=== PATIENT | female | born 1930 | race Caucasian/White ===

== ENCOUNTER 2019-06-18 11:56 | Inpatient (IN) | payer MEDICARE ==
[2019-06-18] MEDS ORDERED: SODIUM CHLORIDE 0.9% 1,000 ML IV STA (13:22)
--- NOTE | 2019-06-18 13:28 | ED ---
General Adult HPI - General Chief complaint: Recheck/Abnormal Lab/Rx Stated complaint: Hypotension Time Seen by Provider: 06/18/19 13:00 Source: patient, EMS, RN notes reviewed Mode of arrival: EMS Limitations: no limitations - History of Present Illness Initial comments: Patient is a pleasantly demented 88-year-old female presenting to the emergency Department with reported low blood pressure. Patient had recent hospitalization for infection of her right elbow with diagnosis of osteomyelitis. Patient was placed on IV medication including vancomycin. Patient states discomfort is only mild in her elbow at this time. Patient is a very poor historian secondary to advanced dementia. Patient reportedly did have recent chest x-ray done showing infiltrate on the right. Patient does admit to feeling tired and fatigued. Patient has no further complaints. - Related Data Home Medications Medication Instructions Recorded Confirmed Bisacodyl [Dulcolax] 10 mg RECTAL HS PRN 06/18/19 06/18/19 Furosemide [Lasix] 20 mg PO DAILY@0800 06/18/19 06/18/19 Furosemide [Lasix] 40 mg PO ONCE PRN 06/18/19 06/18/19 Glucerna Shake 1 can PO BID-W/MEALS 06/18/19 06/18/19 HYDROcodone/APAP 5-325MG [[place] 1 tab PO Q6H PRN 06/18/19 06/18/19 5-325] Loperamide [Imodium] 2 mg PO Q4H PRN 06/18/19 06/18/19 Losartan Potassium 100 mg PO DAILY@0800 06/18/19 06/18/19 Magnesium Hydroxide [Milk of 2,400 mg PO DAILY PRN 06/18/19 06/18/19 Magnesia] Metoprolol Succinate (ER) [Toprol 100 mg PO BID@0800,1700 06/18/19 06/18/19 Xl] Na Phos,M-B/Na Phos,Di-Ba [Fleet 133 ml RECTAL DAILY PRN 06/18/19 06/18/19 Adult] Potassium Chloride ER [K-Dur 10] 10 meq PO DAILY@0800 06/18/19 06/18/19 Tamsulosin [Flomax] 0.4 mg PO DAILY@0800 06/18/19 06/18/19 Vancomycin Oral Solution 1,250 mg PO DAILY@1400 06/18/19 06/18/19 Verapamil HCl [Verapamil ER] 120 mg PO DAILY@0800 06/18/19 06/18/19 Vit C/E/Zn/Coppr/Lutein/Zeaxan 1 cap PO DAILY@1700 06/18/19 06/18/19 [Preservision Areds 2 Softgel] hydrALAZINE HCL [Apresoline] 50 mg PO TID@0800,1700,2100 06/18/19 06/18/19 Allergies Allergy/AdvReac Type Severity Reaction Status Date / Time No Known Allergies Allergy Unverified 06/18/19 12:05 Review of Systems ROS Statement: Those systems with pertinent positive or pertinent negative responses have been documented in the HPI. ROS Other: All systems not noted in ROS Statement are negative. Constitutional: Denies: fever Eyes: Denies: eye pain ENT: Denies: ear pain Respiratory: Denies: cough Cardiovascular: Denies: chest pain Endocrine: Reports: fatigue Gastrointestinal: Denies: abdominal pain Genitourinary: Denies: dysuria Musculoskeletal: Reports: arthralgia. Denies: back pain Skin: Denies: rash Neurological: Denies: weakness Past Medical History Past Medical History: Atrial Fibrillation, Coronary Artery Disease (CAD), Heart Failure, Dementia, Hypertension, Pneumonia Additional Past Medical History / Comment(s): osteomyelitis-vanco History of Any Multi-Drug Resistant Organisms: Unobtainable Past Surgical History: Unable to Obtain Past Psychological History: Unable to Obtain Smoking Status: Unknown if ever smoked Past Alcohol Use History: Unable to Obtain Past Drug Use History: Unable to Obtain General Exam Limitations: no limitations General appearance: alert, in no apparent distress Head exam: Present: atraumatic Eye exam: Present: normal appearance, PERRL ENT exam: Present: mucous membranes dry Neck exam: Present: normal inspection Respiratory exam: Present: normal lung sounds bilaterally Cardiovascular Exam: Present: bradycardia GI/Abdominal exam: Present: soft. Absent: tenderness Extremities exam: Present: other (Right elbow with mild swelling. Pain with range of motion, mild. Mild tenderness to palpation.) Neurological exam: Present: alert. Absent: motor sensory deficit Expanded Motor strength exam: RUE: 5, LUE: 5, RLE: 5, LLE: 5 Psychiatric exam: Present: normal affect, normal mood Skin exam: Present: normal color Course Vital Signs 06/18/19 11:58 Temperature 98.1 F Pulse Rate 48 L Respiratory 18 Rate Blood Pressure 102/63 O2 Sat by Pulse 94 L Oximetry EKG Findings - EKG Comments: EKG Findings:: A. fib with slow ventricular response, rate 48. QRS 86. QT 40. QTc 428. Normal axis. Normal QRS. No acute ST change. Medical Decision Making - Medical Decision Making Patient reevaluated. Patient and family updated. Case discussed with Dr. Hernandez, who will admit covering for Dr. Galarza. - Lab Data Result diagrams: 06/18/19 13:33 06/18/19 13:33 Lab Results 06/18/19 06/18/19 06/18/19 Range/Units 13:33 13:33 13:33 WBC 4.9 (3.8-10.6) k/uL RBC 4.19 (3.80-5.40) m/uL Hgb 12.3 (11.4-16.0) gm/dL Hct 38.5 (34.0-46.0) % MCV 91.9 (80.0-100.0) fL MCH 29.4 (25.0-35.0) pg MCHC 32.0 (31.0-37.0) g/dL RDW 14.2 (11.5-15.5) % Plt Count 189 (150-450) k/uL Neutrophils % 57 % Lymphocytes % 32 % Monocytes % 6 % Eosinophils % 2 % Basophils % 1 % Neutrophils # 2.8 (1.3-7.7) k/uL Lymphocytes # 1.6 (1.0-4.8) k/uL Monocytes # 0.3 (0-1.0) k/uL Eosinophils # 0.1 (0-0.7) k/uL Basophils # 0.0 (0-0.2) k/uL Hypochromasia Moderate PT 10.5 (9.0-12.0) sec INR 1.0 (<1.2) APTT 25.2 (22.0-30.0) sec Sodium 142 (137-145) mmol/L Potassium 4.4 (3.5-5.1) mmol/L Chloride 108 H (98-107) mmol/L Carbon Dioxide 27 (22-30) mmol/L Anion Gap 7 mmol/L BUN 26 H (7-17) mg/dL Creatinine 1.33 H (0.52-1.04) mg/dL Est GFR (CKD-EPI)AfAm 41 (>60 ml/min/1.73 sqM) Est GFR (CKD-EPI)NonAf 35 (>60 ml/min/1.73 sqM) Glucose 112 H (74-99) mg/dL Calcium 8.7 (8.4-10.2) mg/dL Phosphorus 4.0 (2.5-4.5) mg/dL Magnesium 2.2 (1.6-2.3) mg/dL Total Bilirubin 0.6 (0.2-1.3) mg/dL AST 28 (14-36) U/L ALT 45 (9-52) U/L Alkaline Phosphatase 100 (38-126) U/L Creatine Kinase <20 L (30-135) U/L Troponin I (0.000-0.034) ng/mL Total Protein 6.0 L (6.3-8.2) g/dL Albumin 3.2 L (3.5-5.0) g/dL Urine Color Urine Appearance (Clear) Urine pH (5.0-8.0) Ur Specific [place] (1.001-1.035) Urine Protein (Negative) Urine Glucose (UA) (Negative) Urine Ketones (Negative) Urine Blood (Negative) Urine Nitrite (Negative) Urine Bilirubin (Negative) Urine Urobilinogen (<2.0) mg/dL Ur Leukocyte Esterase (Negative) Urine RBC (0-5) /hpf Urine WBC (0-5) /hpf Ur Squamous Epith Cells (0-4) /hpf Amorphous Sediment (None) /hpf Urine Bacteria (None) /hpf Hyaline Casts (0-2) /lpf Urine Mucus (None) /hpf Urine Yeast (Budding) (None) /hpf 06/18/19 06/18/19 Range/Units 13:33 13:37 WBC (3.8-10.6) k/uL RBC (3.80-5.40) m/uL Hgb (11.4-16.0) gm/dL Hct (34.0-46.0) % MCV (80.0-100.0) fL MCH (25.0-35.0) pg MCHC (31.0-37.0) g/dL RDW (11.5-15.5) % Plt Count (150-450) k/uL Neutrophils % % Lymphocytes % % Monocytes % % Eosinophils % % Basophils % % Neutrophils # (1.3-7.7) k/uL Lymphocytes # (1.0-4.8) k/uL Monocytes # (0-1.0) k/uL Eosinophils # (0-0.7) k/uL Basophils # (0-0.2) k/uL Hypochromasia PT (9.0-12.0) sec INR (<1.2) APTT (22.0-30.0) sec Sodium (137-145) mmol/L Potassium (3.5-5.1) mmol/L Chloride (98-107) mmol/L Carbon Dioxide (22-30) mmol/L Anion Gap mmol/L BUN (7-17) mg/dL Creatinine (0.52-1.04) mg/dL Est GFR (CKD-EPI)AfAm (>60 ml/min/1.73 sqM) Est GFR (CKD-EPI)NonAf (>60 ml/min/1.73 sqM) Glucose (74-99) mg/dL Calcium (8.4-10.2) mg/dL Phosphorus (2.5-4.5) mg/dL Magnesium (1.6-2.3) mg/dL Total Bilirubin (0.2-1.3) mg/dL AST (14-36) U/L ALT (9-52) U/L Alkaline Phosphatase (38-126) U/L Creatine Kinase (30-135) U/L Troponin I <0.012 (0.000-0.034) ng/mL Total Protein (6.3-8.2) g/dL Albumin (3.5-5.0) g/dL Urine Color Yellow Urine Appearance Cloudy H (Clear) Urine pH 5.5 (5.0-8.0) Ur Specific [place] 1.008 (1.001-1.035) Urine Protein Negative (Negative) Urine Glucose (UA) Negative (Negative) Urine Ketones Negative (Negative) Urine Blood Negative (Negative) Urine Nitrite Negative (Negative) Urine Bilirubin Negative (Negative) Urine Urobilinogen <2.0 (<2.0) mg/dL Ur Leukocyte Esterase Large H (Negative) Urine RBC 12 H (0-5) /hpf Urine WBC 154 H (0-5) /hpf Ur Squamous Epith Cells 2 (0-4) /hpf Amorphous Sediment Occasional H (None) /hpf Urine Bacteria Rare H (None) /hpf Hyaline Casts 114 H (0-2) /lpf Urine Mucus Occasional H (None) /hpf Urine Yeast (Budding) Many H (None) /hpf - Radiology Data Radiology results: image reviewed (Chest x-ray shows possible heart failure) Disposition Clinical Impression: Bradycardia, Dehydration Disposition: ADMITTED IP TO THIS HOSP Is patient prescribed a controlled substance at d/c from ED?: No Referrals: Thom Galarza MD [Primary Care Provider] - 1-2 days Decision Time: 14:55
[2019-06-18 13:44] LABS: Basophils % (A) 1 %; Eosinophils # (A) 0.1 k/uL (0-0.7); Eosinophils % (A) 2 %; HCT 38.5 % (34.0-46.0); HGB 12.3 gm/dL (11.4-16.0); Hypochromasia Moderate; Lymphocytes # (A) 1.6 k/uL (1.0-4.8); Lymphocytes % (A) 32 %; MCH 29.4 pg (25.0-35.0); MCV 91.9 fL (80.0-100.0); Mean Platelet Volume 7.5; Monocytes # (A) 0.3 k/uL (0-1.0); Monocytes % (A) 6 %; Neutrophils # (A) 2.8 k/uL (1.3-7.7); Neutrophils % (A) 57 %; Platelet Count 189 k/uL (150-450); RBC 4.19 m/uL (3.80-5.40); RDW 14.2 % (11.5-15.5); WBC 4.9 k/uL (3.8-10.6)
[2019-06-18 13:53] LABS: ALT 45 U/L (9-52); AST 28 U/L (14-36); African American GFR (CKD) 41 (>60 ml/min/1.73 sqM); Albumin 3.2 g/dL (3.5-5.0); Alkaline Phosphatase 100 U/L (38-126); Anion Gap 7 mmol/L; Blood Urea Nitrogen 26 mg/dL (7-17); Calcium 8.7 mg/dL (8.4-10.2); Carbon Dioxide 27 mmol/L (22-30); Chloride 108 mmol/L (98-107); Creatine Kinase <20 U/L (30-135); Glucose 112 mg/dL (74-99); Magnesium 2.2 mg/dL (1.6-2.3); Potassium 4.4 mmol/L (3.5-5.1); Sodium 142 mmol/L (137-145); Total Bilirubin 0.6 mg/dL (0.2-1.3)
[2019-06-18 13:54] LABS: Amorphous Sediment,Urine Occasional /hpf; Appearance,Urine Cloudy (Clear); Bacteria,Urine Rare /hpf; Bilirubin,Urine Negative (Negative); Blood,Urine Negative (Negative); Budding Yeast,Urine Many /hpf; Color,Urine Yellow; Glucose,Urine (UA) Negative (Negative); Hyaline Casts,Urine 114 /lpf (0-2); Ketones,Urine Negative (Negative); Leukocyte Esterase,Urine Large (Negative); Mucus,Urine Occasional /hpf; Nitrite,Urine Negative (Negative); PH, Urine 5.5 (5.0-8.0); Protein,Urine Negative (Negative); RBC,Urine 12 /hpf (0-5); Specific Gravity,Urine 1.008 (1.001-1.035); Squamous Epithelial Cell,Urine 2 /hpf (0-4); Urobilinogen,Urine <2.0 mg/dL (<2.0); WBC,Urine 154 /hpf (0-5)
[2019-06-18 13:57] LABS: Partial Thromboplastin Time 25.2 sec (22.0-30.0); Prothrombin Time 10.5 sec (9.0-12.0)
--- NOTE | 2019-06-18 14:25 | XR ---
EXAMINATION TYPE: XR chest 2V DATE OF EXAM: 06/18/2019 COMPARISON: NONE HISTORY: Weakness TECHNIQUE: Frontal and lateral views of the chest are obtained. FINDINGS: Heart is enlarged. There is pulmonary vascular congestion. There are chest leads. There is blunting of both costophrenic angles. There is bilateral apparent old humeral neck fractures. IMPRESSION: Congestive heart failure with pleural effusions.
[2019-06-18] MEDS ORDERED: NALOXONE 0.4 MG/ML 1 ML VIAL IV PRN (15:00)
[2019-06-18] MEDS: SODIUM CHLORIDE 0.9% 1,000 ML IV SCH (15:09)
[2019-06-18] MEDS ORDERED: MAGNESIUM HYDROXIDE 2,400 MG/10 ML CUP PO PRN (16:10)
[2019-06-18] MEDS ORDERED: HYDROcodone/APAP 5-325MG 1 EACH TAB PO PRN (16:10)
[2019-06-18] MEDS ORDERED: BISACODYL 10 MG SUPP RECTAL PRN (16:10)
[2019-06-18] MEDS ORDERED: NA PHOS,M-B/NA PHOS,DI-BA 133 ML ENEMA RECTAL PRN (16:10)
[2019-06-18] MEDS ORDERED: LOPERAMIDE 2 MG CAP PO PRN (16:10)
[2019-06-18] MEDS ORDERED: NON FORMULARY DRUG (Glucerna Shake 1 CAN) PO SCH (17:30)
[2019-06-18] MEDS ORDERED: VANCOMYCIN IV PER PHARMACY 1 EACH MISC MISCELLANE PRN (19:27)
[2019-06-18] MEDS: hydrALAZINE HCL 50 MG TAB PO SCH (21:30)
[2019-06-18] MEDS: HEPARIN SODIUM,PORCINE 5,000 UNIT/ML 1 ML VIAL SQ SCH (21:30)
[2019-06-19] MEDS ORDERED: VANCOMYCIN 1,250 MG in SODIUM CHLORIDE 0.9% 250 ML IVPB SCH ×2
[2019-06-19 06:39] LABS: HCT 38.8 % (34.0-46.0); HGB 12.4 gm/dL (11.4-16.0); Hypochromasia Moderate; MCH 29.4 pg (25.0-35.0); Mean Platelet Volume 7.2; Platelet Count 169 k/uL (150-450); RBC 4.22 m/uL (3.80-5.40); RDW 14.2 % (11.5-15.5); WBC 4.9 k/uL (3.8-10.6)
[2019-06-19 06:48] LABS: Calcium 8.6 mg/dL (8.4-10.2); Potassium 3.7 mmol/L (3.5-5.1)
[2019-06-19] MEDS ORDERED: LOSARTAN 50 MG TAB PO SCH (08:00)
[2019-06-19] MEDS: TAMSULOSIN 0.4 MG CAP.ER.24H PO SCH (09:10)
[2019-06-19] MEDS: POTASSIUM CHLORIDE ER 10 MEQ TAB.ER.PRT PO SCH (09:11)
[2019-06-19] MEDS ORDERED: LOSARTAN 50 MG TAB PO STA (11:07)
[2019-06-19] MEDS: hydrALAZINE HCL 50 MG TAB PO SCH ×2 (11:38→16:55)
--- NOTE | 2019-06-19 13:29 | P.CRDCN ---
History of Present Illness Consult date: 06/19/19 Requesting physician: Phuc Arreola Reason for Consult (text): hypotension Chief complaint: hypotension History of present illness: This is an 88-year-old female most of the history was obtained from the medical record as the patient is quite demented. She apparently had a recent hospitalization for infection of her right elbow with diagnosis of osteomyelitis and was placed on vancomycin. She was advised to be admitted to the hospital because of hypotension according to the notes. Chest x-ray showed congestive heart failure with pleural effusions. EKG on presentation here s howed atrial fibrillation with a heart rate of 48. Blood pressure 160/80 with a heart rate in the 60s, 93% on room air. White blood cell count 4.9, hemoglobin 12.4, platelet count 169. Sodium 142, potassium 3.7, BUN 24 and creatinine 1.2. BNP level 4230, troponin 0.012. Positive UTI. Blood pressure on arrival here 102/60 with a heart rate in the 40s, 94% on room air. Cardiology consultation was requested because of hypotension and bradycardia. At the time of my examination, the patient is sitting up in the chair, quite confused, denies any pain or discomfort. Past Medical History Past Medical History: Atrial Fibrillation, Coronary Artery Disease (CAD), Heart Failure, Dementia, Hypertension, Pneumonia Additional Past Medical History / Comment(s): osteomyelitis-vanco History of Any Multi-Drug Resistant Organisms: Unobtainable Past Surgical History: Unable to Obtain Past Anesthesia/Blood Transfusion Reactions: No Reported Reaction Past Psychological History: Unable to Obtain Smoking Status: Former smoker Past Alcohol Use History: Unable to Obtain Past Drug Use History: Unable to Obtain - Past Family History Father Additional Family Medical History / Comment(s): Other at age 72 from coronary artery disease with history of multiple myocardial infarctions. Mother Additional Family Medical History / Comment(s): Mother from some type of blood cancer with anemia. Brother(s) Additional Family Medical History / Comment(s): Patient had a total of 15 siblings 3 at very young ages. There is a strong history of coronary artery disease. All sisters have macular degeneration. One sister has had a stroke. Daughter(s) Additional Family Medical History / Comment(s): Patient has 1 daughter and 2 sons. One son has vision illness. Medications and Allergies Home Medications Medication Instructions Recorded Confirmed Type Bisacodyl [Dulcolax] 10 mg RECTAL HS PRN 06/18/19 06/18/19 History Furosemide [Lasix] 20 mg PO DAILY@0800 06/18/19 06/18/19 History Furosemide [Lasix] 40 mg PO ONCE PRN 06/18/19 06/18/19 History Glucerna Shake 1 can PO BID-W/MEALS 06/18/19 06/18/19 History HYDROcodone/APAP 5-325MG [[place] 1 tab PO Q6H PRN 06/18/19 06/18/19 History 5-325] Loperamide [Imodium] 2 mg PO Q4H PRN 06/18/19 06/18/19 History Losartan Potassium 100 mg PO DAILY@0800 06/18/19 06/18/19 History Magnesium Hydroxide [Milk of 2,400 mg PO DAILY PRN 06/18/19 06/18/19 History Magnesia] Metoprolol Succinate (ER) [Toprol 100 mg PO BID@0800,1700 06/18/19 06/18/19 History Xl] Na Phos,M-B/Na Phos,Di-Ba [Fleet 133 ml RECTAL DAILY PRN 06/18/19 06/18/19 History Adult] Potassium Chloride ER [K-Dur 10] 10 meq PO DAILY@0800 06/18/19 06/18/19 History Tamsulosin [Flomax] 0.4 mg PO DAILY@0800 06/18/19 06/18/19 History Vancomycin HCl 1,250 mg IV DAILY@1400 06/18/19 06/18/19 History Verapamil HCl [Verapamil ER] 120 mg PO DAILY@0800 06/18/19 06/18/19 History Vit C/E/Zn/Coppr/Lutein/Zeaxan 1 cap PO DAILY@1700 06/18/19 06/18/19 History [Preservision Areds 2 Softgel] hydrALAZINE HCL [Apresoline] 50 mg PO TID@0800,1700,2100 06/18/19 06/18/19 History Allergies Allergy/AdvReac Type Severity Reaction Status Date / Time No Known Allergies Allergy Unverified 06/18/19 12:05 Physical Exam Vitals: Vital Signs Temp Pulse Pulse Resp BP BP Pulse Ox 06/19/19 12:00 67 17 160/80 93 L 06/19/19 10:17 197/106 06/19/19 08:20 98.2 F 63 18 208/70 95 06/19/19 04:00 98.7 F 58 L 16 112/78 98 06/19/19 03:40 54 L 16 06/19/19 00:44 97.8 F 54 L 16 112/78 98 06/18/19 20:00 16 06/18/19 16:25 97.9 F 55 L 16 120/58 97 06/18/19 15:19 44 L 18 108/74 96 Intake and Output 06/18/19 06/19/19 06/19/19 22:59 06:59 14:59 Intake Total 120 170 Output Total 1700 1300 Balance -1580 -1300 170 Intake: Intake, IV Titration 50 Amount cefTRIAXone 1 gm In 50 Sodium Chloride 0.9% 50 ml @ 100 mls/hr IVPB Q12HR [facility] Rx#:[id number] Oral 120 120 Output: Urine 1700 1300 Other: Voiding Method Indwelling Catheter Indwelling Catheter Indwelling Catheter # Voids 0 Weight 86 kg PHYSICAL EXAMINATION: GENERAL: 88-year-old female in no acute distress at the time of my examination HEENT: Head is atraumatic, normocephalic. Pupils equal, round. Sclera anicteric. Conjunctiva are clear. Mucous membranes of the mouth are moist. Neck is supple. There is no elevated jugular venous pressure. No carotid bruit is heard. HEART EXAMINATION: Heart S1-S2 irregularly irregular systolic murmur is heard CHEST EXAMINATION: Lungs are clear to auscultation and precussion. No chest wall tenderness is noted on palpation or with deep breathing. ABDOMEN: Soft, nontender. Bowel sounds are heard. No organomegaly noted. EXTREMITIES: 2+ peripheral pulses with no evidence of peripheral edema and no calf tenderness noted. NEUROLOGIC [patient is awake, confused. Results 06/19/19 05:47 06/19/19 05:47 Cardiac Enzymes 06/18/19 06/18/19 Range/Units 13:33 13:33 AST 28 (14-36) U/L Troponin I <0.012 (0.000-0.034) ng/mL Coagulation 06/18/19 Range/Units 13:33 PT 10.5 (9.0-12.0) sec APTT 25.2 (22.0-30.0) sec CBC 06/18/19 06/19/19 Range/Units 13:33 05:47 WBC 4.9 4.9 (3.8-10.6) k/uL RBC 4.19 4.22 (3.80-5.40) m/uL Hgb 12.3 12.4 (11.4-16.0) gm/dL Hct 38.5 38.8 (34.0-46.0) % Plt Count 189 169 (150-450) k/uL Comprehensive Metabolic Panel 06/18/19 06/19/19 Range/Units 13:33 05:47 Sodium 142 142 (137-145) mmol/L Potassium 4.4 3.7 (3.5-5.1) mmol/L Chloride 108 H 110 H (98-107) mmol/L Carbon Dioxide 27 26 (22-30) mmol/L BUN 26 H 24 H (7-17) mg/dL Creatinine 1.33 H 1.21 H (0.52-1.04) mg/dL Glucose 112 H 99 (74-99) mg/dL Calcium 8.7 8.6 (8.4-10.2) mg/dL AST 28 (14-36) U/L ALT 45 (9-52) U/L Alkaline Phosphatase 100 (38-126) U/L Total Protein 6.0 L (6.3-8.2) g/dL Albumin 3.2 L (3.5-5.0) g/dL Current Medications Generic Name Dose Route Start Last Admin Trade Name Freq PRN Reason Stop Dose Admin Hydrocodone Bitart/Acetaminophen 1 each 06/18/19 16:10 06/19/19 09:16 [place] 5-325 PO 1 each Q6H PRN Administration Pain Bisacodyl 10 mg 06/18/19 16:10 Dulcolax RECTAL HS PRN Constipation Hydralazine HCl 50 mg 06/19/19 11:15 06/19/19 11:38 Apresoline PO 50 mg TID NOEMI Administration Sodium Chloride 1,000 mls @ 20 mls/hr 06/18/19 15:00 06/18/19 15:09 Saline 0.9% IV Not Given .Q24H NOEMI Ceftriaxone Sodium 1 gm/ 50 mls @ 100 mls/hr 06/18/19 21:00 06/19/19 09:11 Sodium Chloride IVPB 100 mls/hr Q12HR NOEMI Administration Vancomycin HCl 1,500 mg/ 250 mls @ 125 mls/hr 06/20/19 12:00 Sodium Chloride IVPB Q36H NOEMI Loperamide HCl 2 mg 06/18/19 16:10 Imodium PO Q4H PRN Loose Stool Losartan Potassium 100 mg 06/20/19 08:00 Cozaar PO DAILY@0800 [facility] Magnesium Hydroxide 2,400 mg 06/18/19 16:10 Milk Of Magnesia PO DAILY PRN Constipation Naloxone HCl 0.2 mg 06/18/19 15:00 Narcan IV Q2M PRN Opioid Reversal Potassium Chloride 10 meq 06/19/19 08:00 06/19/19 09:11 K-Dur 10 PO 10 meq DAILY@0800 [facility] Administration Sodium Biphosphate/Sodium Phosphate 133 ml 06/18/19 16:10 [place] Adult RECTAL DAILY PRN Constipation Tamsulosin HCl 0.4 mg 06/19/19 08:00 06/19/19 09:10 Flomax PO 0.4 mg DAILY@0800 [facility] Administration Intake and Output 06/18/19 06/19/19 06/19/19 22:59 06:59 14:59 Intake Total 120 170 Output Total 1700 1300 Balance -1580 -1300 170 Intake: Intake, IV Titration 50 Amount cefTRIAXone 1 gm In 50 Sodium Chloride 0.9% 50 ml @ 100 mls/hr IVPB Q12HR [facility] Rx#:[id number] Oral 120 120 Output: Urine 1700 1300 Other: Voiding Method Indwelling Catheter Indwelling Catheter Indwelling Catheter # Voids 0 Weight 86 kg 06/19/19 05:47 06/19/19 05:47 EKG Interpretations (text) EKG shows atrial fibrillation with a controlled ventricular response Assessment and Plan Plan: Assessment and plan #1 hypotension, blood pressure medications had been held, blood pressure significantly elevated in the afternoon today. 208/70. Losartan and hydralazine have been resumed. Blood pressure at noon 160/80. #2 chronic persistent atrial fibrillation, not on anticoagulation due to multiple falls. #3 right elbow infection #4 UTI #5 dementia #6 rheumatoid arthritis #7 hypertension history #8 bradycardia, could be secondary to medication, cannot rule out underlying sick sinus syndrome Plan We will continue to hold the beta michelle, continue with losartan and hydralazine. Obtain echocardiogram with Doppler study. Continue to monitor heart rate. DNP note has been reviewed, I agree with a documented findings and plan of care. Patient was seen and examined.
[2019-06-19] MEDS ORDERED: VANCOMYCIN ORAL SOLUTION 250 MG/5 ML BOTTLE PO SCH (14:00)
[2019-06-19] MEDS ORDERED: VANCOMYCIN HCL 1250 MG IV SCH (14:00)
--- NOTE | 2019-06-19 14:49 | P.HPIM ---
History of Present Illness H&P Date: 06/19/19 Chief Complaint: Low blood pressure This is an 88-year-old occasion female patient of Dr. Galarza with past medical history of hypertension, atrial fibrillation, coronary artery disease, rheumatoid arthritis, dementia, significant head trauma 3 years ago causing short-term memory deficit, slow speech and gait disturbance, history of macular degeneration. Due to gait disturbance, patient has multiple falls. She is unstable walking and has had loss of strength. She was recently seen at [facility] after a fall injuring her right elbow, possible osteomyelitis, and has been at [facility] for about 2 weeks receiving IV antibiotics managed by Dr. Holder. At [facility], patient was found to have a low blood pressure and was sent into [facility] emergency center for evaluation. Initial blood pressure on arrival was 102/63, EKG was A. fib at a slow rate of 48 and heart rate has been running around 50. CBC is unremarkable, BUN 26 and creatinine 1.33, blood sugar 112. Liver function tests within normal limits. Troponin negative on initial draw. Urinalysis positive for urinary tract infection. Patient was admitted to the cardiac stepdown unit and cardiology consult requested. Blood pressure medications were initially cut back but this morning, blood pressure 197/106 and patient has been resumed on hydralazine, Toprol-XL. Verapamil and Lasix are on hold. Patient has been resumed on vancomycin consult placed with Dr. Holder. Review of Systems Constitutional: Reports fatigue, Reports poor appetite, Denies chills, Denies fever Ears, nose, mouth and throat: Denies dysphagia, Denies nasal congestion, Denies nasal discharge, Denies vertigo Cardiovascular: Reports leg edema, Denies chest pain, Denies lightheadedness, Denies palpitations, Denies syncope Respiratory: Denies cough, Denies cough with sputum, Denies dyspnea, Denies excessive sputum, Denies hemoptysis, Denies home oxygen Gastrointestinal: Denies abdominal pain, Denies diarrhea, Denies loss of appetite, Denies nausea, Denies vomiting Genitourinary: Denies dysuria Musculoskeletal: Reports frequent falls, Reports gait dysfunction, Reports muscle weakness, Denies myalgias Integumentary: Reports wounds, Denies pruritus, Denies rash Neurological: Reports gait dysfunction, Denies change in mentation, Denies change in speech, Denies numbness, Denies seizures, Denies weakness Psychiatric: Denies anxiety, Denies depression Endocrine: Denies fatigue, Denies weight change Past Medical History Past Medical History: Atrial Fibrillation, Coronary Artery Disease (CAD), Heart Failure, Dementia, Hypertension, Pneumonia Additional Past Medical History / Comment(s): osteomyelitis-vanco History of Any Multi-Drug Resistant Organisms: Unobtainable Past Surgical History: Unable to Obtain Past Anesthesia/Blood Transfusion Reactions: No Reported Reaction Past Psychological History: Unable to Obtain Smoking Status: Former smoker Past Alcohol Use History: Unable to Obtain Additional Past Alcohol Use History / Comment(s): Patient is a nonsmoker, occasional alcohol use. Past Drug Use History: Unable to Obtain - Past Family History Father Additional Family Medical History / Comment(s): Other at age 72 from coronary artery disease with history of multiple myocardial infarctions. Mother Additional Family Medical History / Comment(s): Mother from some type of blood cancer with anemia. Brother(s) Additional Family Medical History / Comment(s): Patient had a total of 15 siblings 3 at very young ages. There is a strong history of coronary artery disease. All sisters have macular degeneration. One sister has had a stroke. Daughter(s) Additional Family Medical History / Comment(s): Patient has 1 daughter and 2 sons. One son has vision illness. Medications and Allergies Home Medications Medication Instructions Recorded Confirmed Type Bisacodyl [Dulcolax] 10 mg RECTAL HS PRN 06/18/19 06/18/19 History Furosemide [Lasix] 20 mg PO DAILY@0800 06/18/19 06/18/19 History Furosemide [Lasix] 40 mg PO ONCE PRN 06/18/19 06/18/19 History Glucerna Shake 1 can PO BID-W/MEALS 06/18/19 06/18/19 History HYDROcodone/APAP 5-325MG [[place] 1 tab PO Q6H PRN 06/18/19 06/18/19 History 5-325] Loperamide [Imodium] 2 mg PO Q4H PRN 06/18/19 06/18/19 History Losartan Potassium 100 mg PO DAILY@0800 06/18/19 06/18/19 History Magnesium Hydroxide [Milk of 2,400 mg PO DAILY PRN 06/18/19 06/18/19 History Magnesia] Metoprolol Succinate (ER) [Toprol 100 mg PO BID@0800,1700 06/18/19 06/18/19 History Xl] Na Phos,M-B/Na Phos,Di-Ba [Fleet 133 ml RECTAL DAILY PRN 06/18/19 06/18/19 History Adult] Potassium Chloride ER [K-Dur 10] 10 meq PO DAILY@0800 06/18/19 06/18/19 History Tamsulosin [Flomax] 0.4 mg PO DAILY@0800 06/18/19 06/18/19 History Vancomycin HCl 1,250 mg IV DAILY@1400 06/18/19 06/18/19 History Verapamil HCl [Verapamil ER] 120 mg PO DAILY@0800 06/18/19 06/18/19 History Vit C/E/Zn/Coppr/Lutein/Zeaxan 1 cap PO DAILY@1700 06/18/19 06/18/19 History [Preservision Areds 2 Softgel] hydrALAZINE HCL [Apresoline] 50 mg PO TID@0800,1700,2100 06/18/19 06/18/19 History Allergies Allergy/AdvReac Type Severity Reaction Status Date / Time No Known Allergies Allergy Unverified 06/18/19 12:05 Physical Exam Vitals: Vital Signs Temp Pulse Pulse Resp BP BP Pulse Ox 06/19/19 10:17 197/106 06/19/19 08:20 98.2 F 63 18 208/70 95 06/19/19 04:00 98.7 F 58 L 16 112/78 98 06/19/19 03:40 54 L 16 06/19/19 00:44 97.8 F 54 L 16 112/78 98 06/18/19 20:00 16 06/18/19 16:25 97.9 F 55 L 16 120/58 97 06/18/19 15:19 44 L 18 108/74 96 06/18/19 11:58 98.1 F 48 L 18 102/63 94 L Intake and Output 06/18/19 06/19/19 06/19/19 22:59 06:59 14:59 Intake Total 120 120 Output Total 1700 1300 Balance -1580 -1300 120 Intake: Oral 120 120 Output: Urine 1700 1300 Other: Voiding Method Indwelling Catheter Indwelling Catheter Indwelling Catheter # Voids 0 Weight 86 kg Gen: This is an 88-year-old female. Family members are at bedside. Patient appears to be in no acute distress. HEENT: Head is atraumatic, normocephalic. Pupils equal, round. Sclerae is anicteric. NECK: Supple. No JVD. No lymphadenopathy. No thyromegaly. LUNGS: Clear to auscultation. No wheezes or rhonchi. No intercostal retractions. HEART: Irregular rate and rhythm. Systolic murmur. ABDOMEN: Soft. Bowel sounds are present. No masses. No tenderness. EXTREMITIES: 1+ pedal edema right lower extremity. No calf tenderness. Contractures bilateral hands with bony deformities secondary to rheumatoid arthritis. NEUROLOGICAL: Patient is awake, alert and oriented x2. Patient's speech is very slow and deliberate. Lower extremity strength 4+ bilaterally, positive sensation. Results CBC & Chem 7: 06/19/19 05:47 06/19/19 05:47 Labs: Abnormal Lab Results - Last 24 Hours (Table) 06/18/19 06/18/19 06/19/19 Range/Units 13:33 13:37 05:47 Chloride 108 H 110 H (98-107) mmol/L BUN 26 H 24 H (7-17) mg/dL Creatinine 1.33 H 1.21 H (0.52-1.04) mg/dL Glucose 112 H (74-99) mg/dL Creatine Kinase <20 L (30-135) U/L Total Protein 6.0 L (6.3-8.2) g/dL Albumin 3.2 L (3.5-5.0) g/dL Urine Appearance Cloudy H (Clear) Ur Leukocyte Esterase Large H (Negative) Urine RBC 12 H (0-5) /hpf Urine WBC 154 H (0-5) /hpf Amorphous Sediment Occasional H (None) /hpf Urine Bacteria Rare H (None) /hpf Hyaline Casts 114 H (0-2) /lpf Urine Mucus Occasional H (None) /hpf Urine Yeast (Budding) Many H (None) /hpf Microbiology - Last 24 Hours (Table) 06/18/19 15:11 Blood Culture Gram Stain - Preliminary Blood 06/18/19 15:11 Blood Culture - Final Blood 06/18/19 13:37 Urine Culture - Preliminary Urine,Catheterized Thrombosis Risk Factor Assmnt - DVT/VTE Prophylaxis DVT/VTE Prophylaxis: Pharmacologic Prophylaxis ordered - Choose All That Apply Each Factor Represents 1 point: Medical pt on bed rest Each Risk Factor Represents 2 Points: Patient confined to bed Each Risk Factor Represents 3 Points: Age 75 years or older Other congenital or acquired thrombophilia - If yes, enter type in comment: No Thrombosis Risk Factor Assessment Total Risk Factor Score: 6 Thrombosis Risk Factor Assessment Level: High Risk Assessment and Plan Plan: 1. Hypotension. Patient has been resumed on hydralazine, Cozaar. Hold Lasix, Toprol-XL and verapamil. Cardiology on consult. 2. Chronic atrial fibrillation with bradycardia. Continue cardiac nurse practitioner. Ho ld Toprol-XL and verapamil due to bradycardia. Patient is not on anticoagulation due to multiple falls. 3. Right elbow infection, possible osteomyelitis. Continue vancomycin, pharmacy to dose. Consult with Dr. Holder. 4. Acute catheter associated urinary tract infection with chronic Peoples. Co ntinue ceftriaxone. Urine and blood cultures. 5. History of head trauma and dementia, stable. Patient is at baseline. 6. History of rheumatoid arthritis with joint deformities bilateral hands, stable. 7. Macular degeneration. 8. Hypertension. As in #1. 9. Urinary retention with chronic Peoples. Continue Flomax or 0.4 mg daily. 10. GI prophylaxis. Protonix. 11. DVT prophylaxis. Heparin subcu. Patient will be admitted to the hospital for a minimum of 2 night stay. Discharge plan: Return to [facility] Impression and plan of care have been directed as dictated by the signing ph ysician. Yessica Angelo nurse practitioner acting as scribe for signing physician.
[2019-06-19] MEDS: SODIUM CHLORIDE 0.9% 1,000 ML IV SCH (16:55)
--- NOTE | 2019-06-20 00:04 | P.CONS ---
History of Present Illness - Reason for Consult Consult date: 06/19/19 right elbow osteomyelitis and + Blood cultures Requesting physician: Phuc Arreola - Chief Complaint low blood pressure at the intermediate - History of Present Illness Patient is 88-year-old female who was recently admitted at [facility] with chronic nonhealing wound to the right elbow area for which the patient did have a MRI of the elbow which shows evidence of osteomyelitis and a small abscess orthopedic was on the case however they recommended against surgical drainage and advised patient to be treated with IV antibiotic therapy patient did get a PICC line and is currently getting vancomycin pharmacy to dose at the intermediate patient has been sent to the ER at [facility] yesterday after the patient was noticed to have a low blood pressure at the [facility] on arrival to the ER the patient blood pressure was 102 systolic and she was noticed to have a low heart rate of 48 however no fever has been recorded patient white count was normal creatinine was slightly elevated he was positive with large leukocyte esterase and 154 WBC patient did have blood cultures drawn from 1 of them is coming positive gram-positive cocci patient also have a chest x-ray shows congestive heart failure with pleural effusion patient has been continued on vancomycin Rocephin positive for possible UTI and infectious disease was consulted for further management of antibiotic patient herself is a pleasantly confused however she denies having any worsening pain to the right elbow area denies having any chest pain or cough no abdominal pain and no diarrhea oral history is limited because of her underlying dementia. Review of Systems Positive points mentioned in history of present illness complete review could not be obtained because of his underlying medical condition. Past Medical History Past Medical History: Atrial Fibrillation, Coronary Artery Disease (CAD), Heart Failure, Dementia, Hypertension, Pneumonia Additional Past Medical History / Comment(s): osteomyelitis-vanco History of Any Multi-Drug Resistant Organisms: Unobtainable Past Surgical History: Unable to Obtain Past Anesthesia/Blood Transfusion Reactions: No Reported Reaction Past Psychological History: Unable to Obtain Smoking Status: Former smoker Past Alcohol Use History: Unable to Obtain Past Drug Use History: Unable to Obtain - Past Family History Father Additional Family Medical History / Comment(s): Other at age 72 from coronary artery disease with history of multiple myocardial infarctions. Mother Additional Family Medical History / Comment(s): Mother from some type of blood cancer with anemia. Brother(s) Additional Family Medical History / Comment(s): Patient had a total of 15 siblings 3 at very young ages. There is a strong history of coronary artery disease. All sisters have macular degeneration. One sister has had a stroke. Daughter(s) Additional Family Medical History / Comment(s): Patient has 1 daughter and 2 sons. One son has vision illness. Medications and Allergies Home Medications Medication Instructions Recorded Confirmed Type Bisacodyl [Dulcolax] 10 mg RECTAL HS PRN 06/18/19 06/18/19 History Furosemide [Lasix] 20 mg PO DAILY@0800 06/18/19 06/18/19 History Furosemide [Lasix] 40 mg PO ONCE PRN 06/18/19 06/18/19 History Glucerna Shake 1 can PO BID-W/MEALS 06/18/19 06/18/19 History HYDROcodone/APAP 5-325MG [[place] 1 tab PO Q6H PRN 06/18/19 06/18/19 History 5-325] Loperamide [Imodium] 2 mg PO Q4H PRN 06/18/19 06/18/19 History Losartan Potassium 100 mg PO DAILY@0800 06/18/19 06/18/19 History Magnesium Hydroxide [Milk of 2,400 mg PO DAILY PRN 06/18/19 06/18/19 History Magnesia] Metoprolol Succinate (ER) [Toprol 100 mg PO BID@0800,1700 06/18/19 06/18/19 History Xl] Na Phos,M-B/Na Phos,Di-Ba [Fleet 133 ml RECTAL DAILY PRN 06/18/19 06/18/19 History Adult] Potassium Chloride ER [K-Dur 10] 10 meq PO DAILY@0800 06/18/19 06/18/19 History Tamsulosin [Flomax] 0.4 mg PO DAILY@0800 06/18/19 06/18/19 History Vancomycin HCl 1,250 mg IV DAILY@1400 06/18/19 06/18/19 History Verapamil HCl [Verapamil ER] 120 mg PO DAILY@0806/18/19 06/18/19 History Vit C/E/Zn/Coppr/Lutein/Zeaxan 1 cap PO DAILY@1700 06/18/19 06/18/19 History [Preservision Areds 2 Softgel] hydrALAZINE HCL [Apresoline] 50 mg PO TID@0800,1700,2100 06/18/19 06/18/19 History Allergies Allergy/AdvReac Type Severity Reaction Status Date / Time No Known Allergies Allergy Unverified 06/18/19 12:05 Physical Exam Vitals: Vital Signs Temp Pulse Pulse Resp BP BP Pulse Ox 06/19/19 12:00 67 17 160/80 93 L 06/19/19 10:17 197/106 06/19/19 08:20 98.2 F 63 18 208/70 95 06/19/19 04:00 98.7 F 58 L 16 112/78 98 06/19/19 03:40 54 L 16 06/19/19 00:44 97.8 F 54 L 16 112/78 98 06/18/19 20:00 16 06/18/19 16:25 97.9 F 55 L 16 120/58 97 06/18/19 15:19 44 L 18 108/74 96 Intake and Output 06/18/19 06/19/19 06/19/19 22:59 06:59 14:59 Intake Total 120 120 Output Total 1700 1300 Balance -1580 -1300 120 Intake: Oral 120 120 Output: Urine 1700 1300 Other: Voiding Method Indwelling Catheter Indwelling Catheter Indwelling Catheter # Voids 0 Weight 86 kg GENERAL DESCRIPTION: Elderly female lying in bed, no distress. No tachypnea or accessory muscle of respiration use. HEENT: Shows Pallor , no scleral icterus. Oral mucous membrane is dry. No pharyngeal erythema or thrush NECK: Trachea central, no thyromegaly. LUNGS: Unlabored breathing. Clear to auscultation anteriorly. No wheeze or crackle. HEART: S1, S2, regular rate and rhythm. No loud murmur ABDOMEN: Soft, no tenderness , guarding or rigidity, no organomegaly EXTREMITIES: right elbow swelling and redness has much improved and no wound SKIN: No rash, no masses palpable. NEUROLOGICAL: The patient is awake, alert, oriented x1, mood and affect normal. Results CBC & Chem 7: 06/19/19 05:47 06/19/19 05:47 Labs: Abnormal Lab Results - Last 24 Hours (Table) 06/18/19 06/18/19 06/19/19 Range/Units 13:33 13:37 05:47 Chloride 108 H 110 H (98-107) mmol/L BUN 26 H 24 H (7-17) mg/dL Creatinine 1.33 H 1.21 H (0.52-1.04) mg/dL Glucose 112 H (74-99) mg/dL Creatine Kinase <20 L (30-135) U/L Total Protein 6.0 L (6.3-8.2) g/dL Albumin 3.2 L (3.5-5.0) g/dL Urine Appearance Cloudy H (Clear) Ur Leukocyte Esterase Large H (Negative) Urine RBC 12 H (0-5) /hpf Urine WBC 154 H (0-5) /hpf Amorphous Sediment Occasional H (None) /hpf Urine Bacteria Rare H (None) /hpf Hyaline Casts 114 H (0-2) /lpf Urine Mucus Occasional H (None) /hpf Urine Yeast (Budding) Many H (None) /hpf Microbiology - Last 24 Hours (Table) 06/18/19 15:11 Blood Culture Gram Stain - Preliminary Blood 06/18/19 15:11 Blood Culture - Final Blood 06/18/19 13:37 Urine Culture - Preliminary Urine,Catheterized Assessment and Plan Assessment: 1-patient with right elbow osteomyelitis with chronic nonhealing wound that has been empirically treated with vancomycin and the patient has shown clinical improvement has no significant swelling or redness or wound was noticed at the right elbow recommend keep the patient on vancomycin pharmacy to dose with a target of 15 2-patient with a positive UA and some mental status changes underlying symptomatic UTI not entirely excluded 3-patient with a positive blood culture with gram-positive cocci with concern for possible PICC line infection and the patient right elbow has shown clinical improvement (1) Osteomyelitis of right elbow Current Visit: Yes Status: Acute Code(s): M86.9 - OSTEOMYELITIS, UNSPECIFIED SNOMED Code(s): 298841119 (2) UTI (urinary tract infection) Current Visit: Yes Status: Acute Code(s): N39.0 - URINARY TRACT INFECTION, SITE NOT SPECIFIED SNOMED Code(s): 50162478 (3) Bacteremia Current Visit: No Status: Acute Code(s): R78.81 - BACTEREMIA SNOMED Code(s): 9134995 Plan: 1-blood cultures will be repeated from the PICC line and peripherally 2-vancomycin pharmacy to dose target trough of 15 while watching his kidney function and vancomycin trough closely 3-Rocephin 1 g daily to cover for the UTI 4-gentle IV fluid We will follow on clinical condition and cultures to further adjust medication if needed Thank you for this consultation will follow this patient along with you Time with Patient: Greater than 30
[2019-06-20] MEDS: hydrALAZINE HCL 50 MG TAB PO SCH ×3 (05:25→21:09)
[2019-06-20] MEDS: LOSARTAN 50 MG TAB PO SCH (05:25)
[2019-06-20] MEDS: PANTOPRAZOLE 40 MG TABLET PO SCH (06:22)
[2019-06-20] MEDS ORDERED: VERAPAMIL SR 120 MG TABLET.ER PO SCH (08:00)
[2019-06-20] MEDS: HEPARIN SODIUM,PORCINE 5,000 UNIT/ML 1 ML VIAL SQ SCH ×2 (08:24→21:09)
[2019-06-20] MEDS: TAMSULOSIN 0.4 MG CAP.ER.24H PO SCH (08:25)
[2019-06-20] MEDS: POTASSIUM CHLORIDE ER 10 MEQ TAB.ER.PRT PO SCH (08:25)
[2019-06-20] MEDS ORDERED: FUROSEMIDE 40 MG TAB PO PRN (11:13)
[2019-06-20] MEDS: METOPROLOL TARTRATE 25 MG TAB PO SCH ×3 (11:45→21:11)
[2019-06-20] MEDS: FUROSEMIDE 20 MG TAB PO SCH (11:45)
[2019-06-20] MEDS: amLODIPine 5 MG TAB PO SCH ×2 (11:46→21:09)
[2019-06-20] MEDS ORDERED: VANCOMYCIN 1,500 MG in SODIUM CHLORIDE 0.9% 250 ML IVPB SCH (12:00)
--- NOTE | 2019-06-20 14:10 | P.PN ---
Subjective Progress Note Date: 06/20/19 This is an 88-year-old occasion female patient of Dr. Galarza with past medical history of hypertension, atrial fibrillation, coronary artery disease, rheumatoid arthritis, dementia, significant head trauma 3 years ago causing short-term memory deficit, slow speech and gait disturbance, history of macular degeneration. Due to gait disturbance, patient has multiple falls. She is unstable walking and has had loss of strength. She was recently seen at [facility] after a fall injuring her right elbow, possible osteomyelitis, and has been at [facility] for about 2 weeks receiving IV antibiotics managed by Dr. Holder. At [facility], patient was found to have a low blood pressure and was sent into [facility] emergency center for evaluation. Initial blood pressure on arrival was 102/63, EKG was A. fib at a slow rate of 48 and heart rate has been running around 50. CBC is unremarkable, BUN 26 and creatinine 1.33, blood sugar 112. Liver function tests within normal limits. Troponin negative on initial draw. Urinalysis positive for urinary tract infection. Patient was admitted to the cardiac stepdown unit and cardiology consult requested. Blood pressure medications were initially cut back but this morning, blood pressure 197/106 and patient has been resumed on hydralazine, Toprol-XL. Verapamil and Lasix are on hold. Patient has been resumed on vancomycin consult placed with Dr. Holder. 06/20: Patient's blood pressure remains elevated and heart rate has improved, patient will be resumed on Lasix 20 mg daily. Lopressor 25 mg 3 times daily started by cardiology. Echocardiogram has been ordered. Patient has been seen by cardiology and Dr. Holder. She is continued on IV vancomycin as well. Dr. Holder has ordered for repeat blood cultures from PICC line and peripheral. Patient is also continued on Rocephin for UTI. Blood culture from the emergency center is showing coag-negative staph. Urine culture is pending. Patient does meet criteria for palliative care and referral has been placed by special education case manager. Objective - Vital Signs Vital signs: Vital Signs Temp 97.6 F 06/20/19 07:25 Pulse 76 06/20/19 07:25 Resp 16 06/20/19 07:25 BP 195/97 06/20/19 07:25 Pulse Ox 98 06/20/19 07:25 Intake & Output 06/19/19 06/20/19 06/20/19 18:59 06:59 18:59 Intake Total 410 118 Output Total 675 500 Balance -265 -500 118 Weight 73 kg 69.4 kg Intake: Intake, IV Titration 50 Amount cefTRIAXone 1 gm In 50 Sodium Chloride 0.9% 50 ml @ 100 mls/hr IVPB Q12HR NOEMI Rx#:[id number] Oral 360 118 Output: Urine 675 500 Other: Voiding Method Indwelling Catheter Indwelling Catheter Indwelling Catheter # Bowel Movements 1 - Exam Review of Systems Constitutional: Reports fatigue, Reports poor appetite, Denies chills, Denies fever Ears, nose, mouth and throat: Denies dysphagia, Denies nasal congestion, Denies nasal discharge, Denies vertigo Cardiovascular: Reports leg edema, Denies chest pain, Denies lightheadedness, Denies palpitations, Denies syncope Respiratory: Denies cough, Denies cough with sputum, Denies dyspnea, Denies excessive sputum, Denies hemoptysis, Denies home oxygen Gastrointestinal: Denies abdominal pain, Denies diarrhea, Denies loss of appetite, Denies nausea, Denies vomiting Genitourinary: Denies dysuria Musculoskeletal: Reports frequent falls, Reports gait dysfunction, Reports muscle weakness, Denies myalgias Integumentary: Reports wounds, Denies pruritus, Denies rash Neurological: Reports gait dysfunction-chronic, Denies change in mentation, Denies change in speech, Denies numbness, Denies seizures, Denies weakness Psychiatric: Denies anxiety, Denies depression Endocrine: Denies fatigue, Denies weight change Gen: This is an 88-year-old female. Family members are at bedside. Patient appears to be in no acute distress. HEENT: Head is atraumatic, normocephalic. Pupils equal, round. Sclerae is anicteric. NECK: Supple. No JVD. No lymphadenopathy. No thyromegaly. LUNGS: Clear to auscultation. No wheezes or rhonchi. No intercostal retractions. HEART: Irregular rate and rhythm. Systolic murmur. ABDOMEN: Soft. Bowel sounds are present. No masses. No tenderness. EXTREMITIES: 1+ pedal edema right lower extremity. No calf tenderness. Contractures bilateral hands with bony deformities secondary to rheumatoid arthritis. Dressing in place to the right elbow. NEUROLOGICAL: Patient is awake, alert and oriented x2. Patient's speech is very slow and deliberate. Lower extremity strength 4+ bilaterally, positive sensation. - Labs CBC & Chem 7: 06/19/19 05:47 06/19/19 05:47 Labs: Microbiology - Last 24 Hours (Table) 06/18/19 15:11 Blood Culture Gram Stain - Preliminary Blood Blood Culture - Final Coagulase Negative Staph 06/18/19 15:11 Blood Culture - Final Blood Assessment and Plan Plan: 1. Hypotension. Patient has been resumed on hydralazine, Cozaar. Hold Lasix, Toprol-XL and verapamil. Cardiology on consult. 2. Chronic atrial fibrillation with bradycardia. Continue compliance monitor. Hold Toprol-XL and verapamil due to bradycardia. Patient is not on anticoagulation due to multiple falls. 3. Right elbow osteomyelitis. Continue vancomycin, pharmacy to dose. Consult with Dr. Holder. 4. Acute catheter associated urinary tract infection with chronic Peoples. Continue ceftriaxone. Urine and blood cultures. 5. History of head trauma and dementia, stable. Patient is at baseline. 6. History of rheumatoid arthritis with joint deformities bilateral hands, stable. 7. Macular degeneration. 8. Hypertension. As in #1. 9. Urinary retention with chronic Peoples. Continue Flomax or 0.4 mg daily. 10. GI prophylaxis. Protonix. 11. DVT prophylaxis. Heparin subcu. Discharge plan: Return to [facility] on Wednesday. Palliative referral placed. Impression and plan of care have been directed as dictated by the signing physician. Yessica Angelo nurse practitioner acting as scribe for signing physician.
[2019-06-20] MEDS: SODIUM CHLORIDE 0.9% 1,000 ML IV SCH (15:41)
--- NOTE | 2019-06-20 16:11 | P.PN ---
Subjective Progress Note Date: 06/20/19 This is an 88-year-old female most of the history was obtained from the medical record as the patient is quite demented. She apparently had a recent hospitalization for infection of her right elbow with diagnosis of osteomyelitis and was placed on vancomycin. She was advised to be admitted to the hospital because of hypotension according to the notes. Chest x-ray showed congestive heart failure with pleural effusions. EKG on presentation here showed atrial fibrillation with a heart rate of 48. Blood pressure 160/80 with a heart rate in the 60s, 93% on room air. White blood cell count 4.9, hemoglobin 12.4, platelet count 169. Sodium 142, potassium 3.7, BUN 24 and creatinine 1.2. BNP level 4230, troponin 0.012. Positive UTI. Blood pressure on arrival here 102/60 with a heart rate in the 40s, 94% on room air. Cardiology consultation was requested because of hypotension and bradycardia. At the time of my examination, the patient is sitting up in the chair, quite confused, denies any pain or discomfort. 06/20/2019 Patient seen and examined this morning, family at bedside. Blood pressure at 5 this morning 223/101, at 7:30 195/97. We will add beta michelle back into her medication regime today at a lower dose of 25 mg by mouth 3 times a day, we will not add any verapamil today, but we will add Norvasc to the patient's medication regime, continue to monitor heart rate and blood pressure. Objective - Vital Signs Vital signs: Vital Signs Temp 97.4 F L 06/20/19 15:35 Pulse 60 06/20/19 15:35 Resp 16 06/20/19 15:35 BP 165/75 06/20/19 15:35 Pulse Ox 98 06/20/19 15:35 Intake & Output 06/19/19 06/20/19 06/20/19 18:59 06:59 18:59 Intake Total 410 358 Output Total 675 500 975 Balance -265 -847 -018 Weight 73 kg 69.4 kg Intake: Intake, IV Titration 50 50 Amount cefTRIAXone 1 gm In 50 50 Sodium Chloride 0.9% 50 ml @ 100 mls/hr IVPB Q12HR [facility] Rx#:[id number] Oral 360 308 Output: Urine 675 500 975 Other: Voiding Method Indwelling Catheter Indwelling Catheter Indwelling Catheter # Bowel Movements 1 - Exam PHYSICAL EXAMINATION: GENERAL: 88-year-old female in no acute distress at the time of my examination HEENT: Head is atraumatic, normocephalic. Pupils equal, round. Sclera anicteric. Conjunctiva are clear. Mucous membranes of the mouth are moist. Neck is supple. There is no elevated jugular venous pressure. No carotid bruit is heard. HEART EXAMINATION: Heart S1-S2 irregularly irregular systolic murmur is heard CHEST EXAMINATION: Lungs are clear to auscultation and precussion. No chest wall tenderness is noted on palpation or with deep breathing. ABDOMEN: Soft, nontender. Bowel sounds are heard. No organomegaly noted. EXTREMITIES: 2+ peripheral pulses with no evidence of peripheral edema and no calf tenderness noted. NEUROLOGIC [patient is awake, confused. - Labs CBC & Chem 7: 06/19/19 05:47 06/19/19 05:47 Labs: Microbiology - Last 24 Hours (Table) 06/18/19 15:11 Blood Culture Gram Stain - Preliminary Blood Blood Culture - Final Coagulase Negative Staph Assessment and Plan Plan: Assessment and plan #1 hypotension, blood pressure medications had been held, blood pressure significantly elevated in the afternoon today. 208/70. Losartan and hydralazine have been resumed. Blood pressure at noon 160/80. #2 chronic persistent atrial fibrillation, not on anticoagulation due to mu ltiple falls. #3 right elbow infection #4 UTI #5 dementia #6 rheumatoid arthritis #7 hypertension history #8 bradycardia, could be secondary to medication, cannot rule out underlying sick sinus syndrome Plan We will add metoprolol tart tray 25 mg one tablet by mouth 3 times a day as well as Norvasc 5 mg by mouth twice a day to the medication regime, continue to monitor blood pressure and heart rate closely . DNP note has been reviewed, I agree with a documented findings and plan of care. Patient was seen and examined.
[2019-06-20] MEDS ORDERED: VIT A,C & E-LUTEIN-MINERALS 1 EACH TAB PO SCH (17:00)
[2019-06-20] MEDS ORDERED: METOPROLOL SUCCINATE (ER) 100 MG TAB.ER.24H PO SCH (17:00)
[2019-06-20] MEDS ORDERED: amLODIPine 5 MG TAB PO SCH (21:00)
--- NOTE | 2019-06-20 23:24 | PN ---
PROGRESS NOTE DATE OF SERVICE: 06/20/2019. REASON FOR FOLLOW UP: 1. Right elbow osteomyelitis. 2. Positive blood culture coagulase negative Staph likely contamination. 3. Positive urinalysis with yeast, possible Peoples colonization. INTERVAL HISTORY: The patient is currently afebrile. The patient denies having any chest pain or cough or any worsening pain to the right elbow area. No nausea, vomiting or diarrhea reported by the nursing staff. PHYSICAL EXAMINATION: Blood pressure is 135/74 with a pulse of 52, temperature 97.9. She is 94% on room air. General description is an elderly female up in the bed in no distress. Respiratory system: Unlabored breathing. Clear to auscultation anteriorly. Heart S1, S2. Regular rate and rhythm. ABDOMEN: Soft, no tenderness. Right elbow swelling and redness has much improved. LABS: Hemoglobin is 12.4, white count 4.9, BUN of 24, creatinine is 1.21. Blood cultures coagulase negative Staph. Urine tasneem. The patient has . DIAGNOSTIC IMPRESSION AND PLAN: 1. Patient with right elbow osteomyelitis for which the patient currently on IV vancomycin has shown clinical improvement to continue with vancomycin while monitoring her kidney function and clinical course closely. 2. Positive blood culture with coagulase-negative Staph. Likely contamination. No need for further therapy for the same. 3. Positive urinalysis with culture showing Tasneem albicans, possible Peoples colonization. We will change Peoples catheter. Obtain urine culture from new Peoples. Continue supportive care. MMODL / IJN: [id number] /
[2019-06-21 02:34] LABS: Glucose,Whole Blood 105 mg/dL (75-99)
--- NOTE | 2019-06-21 03:00 | CT ---
EXAMINATION TYPE: CODE STROKE: CT brain wo contr DATE OF EXAM: 06/21/2019 HISTORY: code stroke CT DLP: 1187.8 mGycm. Automated Exposure Control for Dose Reduction was Utilized. TECHNIQUE: CT scan of the head is performed without contrast. COMPARISON: FINDINGS: There is cerebral cortical atrophy. There is no mass effect nor midline shift. There is no sign of intracranial hemorrhage. Calvarium is intact. There is patchy hypodensity in the periventricu lar white matter. IMPRESSION: Cerebral atrophy and chronic small vessel ischemia. No acute intracranial abnormality.
[2019-06-21 03:24] LABS: Basophils # (A) 0.1 k/uL (0-0.2); Basophils % (A) 2 %; Eosinophils # (A) 0.2 k/uL (0-0.7); Eosinophils % (A) 5 %; HGB 13.2 gm/dL (11.4-16.0); Hypochromasia Slight; Lymphocytes # (A) 1.5 k/uL (1.0-4.8); Lymphocytes % (A) 35 %; MCH 27.9 pg (25.0-35.0); Mean Platelet Volume 6.8; Monocytes # (A) 0.3 k/uL (0-1.0); Monocytes % (A) 7 %; Neutrophils # (A) 2.1 k/uL (1.3-7.7); Neutrophils % (A) 48 %; Platelet Count 175 k/uL (150-450); RBC 4.73 m/uL (3.80-5.40); RDW 14.1 % (11.5-15.5); WBC 4.3 k/uL (3.8-10.6)
[2019-06-21 03:33] VITALS: RESP 18
[2019-06-21 03:35] LABS: Partial Thromboplastin Time 24.9 sec (22.0-30.0); Prothrombin Time 10.6 sec (9.0-12.0)
[2019-06-21 03:36] LABS: Albumin 3.7 g/dL (3.5-5.0); Calcium 9.1 mg/dL (8.4-10.2); Potassium 3.5 mmol/L (3.5-5.1); Total Bilirubin 0.9 mg/dL (0.2-1.3); Total Protein 6.8 g/dL (6.3-8.2)
[2019-06-21] MEDS ORDERED: hydrALAZINE HCL 25 MG TAB PO ONE (03:45)
[2019-06-21] MEDS ORDERED: FUROSEMIDE 20 MG TAB PO SCH (08:00)
[2019-06-21] MEDS ORDERED: METOPROLOL TARTRATE 50 MG TAB PO SCH (09:00)
[2019-06-21] MEDS ORDERED: hydrALAZINE HCL 25 MG TAB PO SCH (09:00)
[2019-06-21] MEDS: POTASSIUM CHLORIDE ER 10 MEQ TAB.ER.PRT PO SCH (09:59)
[2019-06-21] MEDS: LOSARTAN 50 MG TAB PO SCH (09:59)
[2019-06-21] MEDS: FUROSEMIDE 20 MG TAB PO SCH (09:59)
[2019-06-21] MEDS: PANTOPRAZOLE 40 MG TABLET PO SCH (09:59)
[2019-06-21] MEDS ORDERED: FLUCONAZOLE 100 MG TAB PO SCH (10:00)
[2019-06-21] MEDS: amLODIPine 5 MG TAB PO SCH (10:00)
[2019-06-21] MEDS: HEPARIN SODIUM,PORCINE 5,000 UNIT/ML 1 ML VIAL SQ SCH (10:00)
[2019-06-21] MEDS: TAMSULOSIN 0.4 MG CAP.ER.24H PO SCH (10:00)
--- NOTE | 2019-06-21 11:27 | P.DS ---
Providers Date of admission: 06/19/19 11:34 Expected date of discharge: 06/21/19 Attending physician: Phuc Arreola MD Consults: 06/18/19 15:01 Consult Physician Urgent Consulting Provider: Richie Singh Consult Reason/Comments: Bradycardia, hypotension, evaluate for CHF Do you want consulting provider notified?: Yes 06/19/19 11:13 Consult Physician Routine Consulting Provider: Javier Holder Consult Reason/Comments: elbow infection Do you want consulting provider notified?: Yes 06/21/19 04:37 Consult Physician Urgent Consulting Provider: Gladys Nam Consult Reason/Comments: code stroke called Do you want consulting provider notified?: Yes, Notify in am Primary care physician: [facility] Course: This is an 88-year-old occasion female patient of Dr. Galarza with past medical history of hypertension, atrial fibrillation, coronary artery disease, rheumatoid arthritis, dementia, significant head trauma 3 years ago causing short-term memory deficit, slow speech and gait disturbance, history of macular degeneration. Due to gait disturbance, patient has multiple falls. She is unstable walking and has had loss of strength. She was recently seen at [facility] after a fall injuring her right elbow, possible osteomyelitis, and has been at [facility] for about 2 weeks receiving IV antibiotics managed by Dr. Holder. At [facility], patient was found to have a low blood pressure and was sent into [facility] emergency center for evaluation. Initial blood pressure on arrival was 102/63, EKG was A. fib at a slow rate of 48 and heart rate has been running around 50. CBC is unremarkable, BUN 26 and creatinine 1.33, blood sugar 112. Liver function tests within normal limits. Troponin negative on initial draw. Urinalysis positive for urinary tract infection. Patient was admitted to the cardiac stepdown unit and cardiology consult requested. Blood pressure medications were initially cut back but this morning, blood pressure 197/106 and patient has been resumed on hydralazine, Toprol-XL. Verapamil and Lasix are on hold. Patient has been resumed on vancomycin consult placed with Dr. Holder. 06/20: Patient's blood pressure remains elevated and heart rate has improved, patient will be resumed on Lasix 20 mg daily. Lopressor 25 mg 3 times daily started by cardiology. Echocardiogram has been ordered. Patient has been seen by cardiology and Dr. Holder. She is continued on IV vancomycin as well. Dr. Holder has ordered for repeat blood cultures from PICC line and peripheral. Patient is also continued on Rocephin for UTI. Blood culture from the emergency center is showing coag-negative staph. Urine culture is pending. Patient does meet criteria for palliative care and referral has been placed by classification case manager. 06/21: Patient has been afebrile, heart rate 86, blood pressure 168/78 and pulse ox 94% on room air. CBC unremarkable, electrolytes normal, BUN 20 creatinine 1.10. Repeat troponin 0.031. Patient has completed course of ceftriaxone for UTI and this is been discontinued. Repeat blood culture is showing no growth at 24 hours. Initial urine culture is showing Tasneem species not albicans. Peoples catheter to be exchanged. Dr. Holder has started the patient on Diflucan and patient is continued on vancomycin for osteomyelitis. Early this morning, patient developed increased aphasia, confusion and right-sided facial droop. NIH score #4 was documented at that time. She was given additional dose of hydralazine and increased and metoprolol was increased to 50 mg 3 times daily. Patient was also given hydralazine and Cozaar early due to elevated blood pressure. CAT scan of the brain shows cerebral atrophy and chronic small vessel ischemia. No acute intracranial abnormality. Patient states she did not have any worsening of her speech this morning. Patient states that she feels well today and daughter states she is looking better than her baseline. Patient noted to have improved ROM to hand contractures. Echocardiogram reveals EF 55-60%, moderate mitral regurgitation, severe tricuspid regurgitation, severe pulmonary hypertension. The patient and daughter both deny any new complaints. Patient will be discharged back to [facility] today in stable condition. Discharge diagnoses: 1. Hypotension. 2. Chronic atrial fibrillation with bradycardia. 3. Right elbow osteomyelitis. 4. Acute catheter associated Tasneem urinary tract infection with chronic Peoples, possible Peoples colonization. 5. History of head trauma and dementia, stable. Patient is at baseline. 6. History of rheumatoid arthritis with joint deformities bilateral hands, stable. 7. Macular degeneration. 8. Hypertension. 9. Urinary retention with chronic Peoples. Discharge plan: Return to [facility] on Wednesday. Palliative referral placed. Impression and plan of care have been directed as dictated by the signing physician. Yessica Angelo nurse practitioner acting as scribe for signing physician. Patient Condition at Discharge: Good Plan - Discharge Summary Discharge Rx Participant: No New Discharge Prescriptions: New hydrALAZINE HCL [Apresoline] 75 mg PO TID tab Metoprolol Tartrate [Lopressor] 50 mg PO TID tab amLODIPine [Norvasc] 5 mg PO BID tab Continue Loperamide [Imodium] 2 mg PO Q4H PRN PRN Reason: Loose Stool Furosemide [Lasix] 40 mg PO ONCE PRN PRN Reason: DIURETIC Na Phos,M-B/Na Phos,Di-Ba [Fleet Adult] 133 ml RECTAL DAILY PRN PRN Reason: Constipation Bisacodyl [Dulcolax] 10 mg RECTAL HS PRN PRN Reason: Constipation Glucerna Shake 1 can PO BID-W/MEALS Vit C/E/Zn/Coppr/Lutein/Zeaxan [Preservision Areds 2 Softgel] 1 cap PO DAILY@1700 Losartan Potassium 100 mg PO DAILY@0800 Tamsulosin [Flomax] 0.4 mg PO DAILY@0800 Potassium Chloride ER [K-Dur 10] 10 meq PO DAILY@0800 Furosemide [Lasix] 20 mg PO DAILY@0800 Magnesium Hydroxide [Milk of Magnesia] 2,400 mg PO DAILY PRN PRN Reason: Constipation HYDROcodone/APAP 5-325MG [[place] 5-325] 1 tab PO Q6H PRN #12 tab PRN Reason: Pain Vancomycin HCl 1,250 mg IV DAILY@1400 #0 Discontinued hydrALAZINE HCL [Apresoline] 50 mg PO TID@0800,1700,2100 Metoprolol Succinate (ER) [Toprol Xl] 100 mg PO BID@0800,1700 Verapamil HCl [Verapamil ER] 120 mg PO DAILY@0800 Discharge Medication List Bisacodyl [Dulcolax] 10 mg RECTAL HS PRN 06/18/19 [History] Furosemide [Lasix] 20 mg PO DAILY@0800 06/18/19 [History] Furosemide [Lasix] 40 mg PO ONCE PRN 06/18/19 [History] Glucerna Shake 1 can PO BID-W/MEALS 06/18/19 [History] Loperamide [Imodium] 2 mg PO Q4H PRN 06/18/19 [History] Losartan Potassium 100 mg PO DAILY@0800 09/29/19 [History] Magnesium Hydroxide [Milk of Magnesia] 2,400 mg PO DAILY PRN 06/18/19 [History] Na Phos,M-B/Na Phos,Di-Ba [Fleet Adult] 133 ml RECTAL DAILY PRN 06/18/19 [History] Potassium Chloride ER [K-Dur 10] 10 meq PO DAILY@0800 06/18/19 [History] Tamsulosin [Flomax] 0.4 mg PO DAILY@0800 06/18/19 [History] Vit C/E/Zn/Coppr/Lutein/Zeaxan [Preservision Areds 2 Softgel] 1 cap PO DAILY@1700 06/18/19 [History] HYDROcodone/APAP 5-325MG [[place] 5-325] 1 tab PO Q6H PRN #12 tab 06/21/19 [Rx] Metoprolol Tartrate [Lopressor] 50 mg PO TID tab 06/21/19 [Rx] Vancomycin HCl 1,250 mg IV DAILY@1400 #0 06/21/19 [Rx] amLODIPine [Norvasc] 5 mg PO BID tab 06/21/19 [Rx] hydrALAZINE HCL [Apresoline] 75 mg PO TID tab 06/21/19 [Rx] Follow up Appointment(s)/Referral(s): Thom Galarza MD [Primary Care Provider] - 1 Week (at [facility]) Activity/Diet/Wound Care/Special Instructions: Patient score 4 on Palliative care screening. Discharge Disposition: TRANSFER TO SNF/ECF
--- NOTE | 2019-06-21 12:29 | P.CNNES ---
History of Present Illness Consult date: 06/21/19 Reason for Consult: Stroke code Chief complaint: Stroke code History of Present Illness: REFERRING PHYSICIAN: Dr. Arreola HISTORY OF PRESENT ILLNESS: Thank you for allowing me to evaluate Ms. Daysi Gambino. Ms. Gambino is an 88-year-old woman with past medical history of atrial fibrillation, coronary artery disease, heart failure, dementia, hypertension, osteomyelitis, admitted on 06/18/19 for low blood pressure, consulting neurology after a stroke code was called. Patient had been recently hospitalized for osteomyelitis of her right elbow. Last night around 2:30 AM, patient was awake and the nurse asked the patient how she was doing. Patient's response was slurr ed and increasingly delayed. Patient was also noted to have right-sided facial droop at which time stroke code was called. Patient's blood pressure the time was 190s/90s. Patient denies any headache, nausea, vomiting, dizziness, numbness or tingling. Denies any double vision or blurry vision. However, obtaining history is limited due to her history of dementia. The nurse states that her slow speech has been present since her admission on 06/18/2019. PAST MEDICAL HISTORY: Atrial fibrillation, coronary artery disease, heart failure, dementia, hypertension, osteomyelitis PAST SURGICAL HISTORY: None known HOME MEDICATIONS: Loperamide, furosemide, Dulcolax, hydralazine, metoprolol, verapamil, multivitamins, losartan, tamsulosin, potassium, furosemide, magnesium, vancomycin ALLERGIES: No known ALLERGIES SOCIAL HISTORY: Unable to obtain FAMILY HISTORY: Unable to obtain REVIEW OF SYSTEMS: The 14 systems are reviewed and no additional points are identified compared to the review of systems documented history and physical PHYSICAL EXAMINATION: VITAL SIGNS: T 98.2 HR 86 RR 18 BP 168/78 O2 sat 94% on RA GEN.: NAD, pleasant and cooperative HEENT: NCAT, sclera without icterus NECK: Supple, no carotid bruit SKIN AND EXTREMITIES: Warm to touch, no edema NEURO: MENTAL STATUS: Patient alert and oriented to self, place. Says "2020." Speech somewhat fluent but delayed, able to name and repeat, following most commands readily. No right and left disorientation. CRANIAL NERVES II THROUGH XII: II: Pupils are equal and reactive to light symmetrically. No afferent pupillary defect. Blinks to threat b/l III, IV, : No ptosis. Difficulty with vertical gaze, more with downward gaze No nystagmus. V: Facial sensation intact from V1-3. VII. R facial droop. VIII: Hearing intact to finger rub bilaterally. IX, X: Symmetric palate elevation. XI: Shoulder shrug intact. XII: Tongue midline without fasciculation or atrophy. MOTOR: Normal bulk/tone. No pronator drift or tremor. Strength grossly at least 4/5 in all 4 extremities SENSORY: Intact to light touch in all 4 extremities. REFLEXES: 2+ throughout. Toes are downgoing. No clonus. Eladio's is absent DIAGNOSTIC TESTING: LABORATORY: WBC 4.3 hemoglobin 13.2 platelet 175 PT 10.6 INR 1.0 Sodium 140 potassium 3.5 chloride 103 bicarb 28 BUN 20 creatinine 1.10 glucose 115 AST 27 ALT 33 alk phos 115 urinalysis from 06/18/2019 with large leukoesterase, 154 WBC IMAGING: CT head without contrast 06/21/2019: Cerebral atrophy and chronic small vessel ischemia. No acute intracranial abnormality. Small R BG calcification EKG 06/18/2019: Atrial fibrillation with slow ventricular response. ASSESSMENT: Ms. Gambino is an 88-year-old woman with past medical history of atrial fibrillation, coronary artery disease, heart failure, dementia, hypertension, osteomyelitis, admitted on 06/18/19 for low blood pressure, consulting neurology after a stroke code was called. Patient's exam notable for R facial droop along with some cognitive impairment although able to follow a good numbe of commands. Pt with a.fib on EKG, CHADsVAsc score at least 3 even if not giving points for possible TIA-like symptoms. Patient is not on ASA/Plavix/anticoagulation. I would like to work-up for stroke with MRI brain and consider anticoagulation. RECOMMENDATIONS: 1. MRI brain w/o contrast 2. Carotid dopplers 3. TSH, A1C, FLP 4. ASA 81mg for now and atorvastatin 80mg qhs 5. Neurology will continue to follow Past Medical History Past Medical History: Atrial Fibrillation, Coronary Artery Disease (CAD), Heart Failure, Dementia, Hypertension, Pneumonia Additional Past Medical History / Comment(s): osteomyelitis-vanco History of Any Multi-Drug Resistant Organisms: Unobtainable Past Surgical History: Unable to Obtain Past Anesthesia/Blood Transfusion Reactions: No Reported Reaction Past Psychological History: Unable to Obtain Smoking Status: Former smoker Past Alcohol Use History: Unable to Obtain Past Drug Use History: Unable to Obtain - Past Family History Father Additional Family Medical History / Comment(s): Other at age 72 from coronary artery disease with history of multiple myocardial infarctions. Mother Additional Family Medical History / Comment(s): Mother from some type of blood cancer with anemia. Brother(s) Additional Family Medical History / Comment(s): Patient had a total of 15 siblings 3 at very young ages. There is a strong history of coronary artery disease. All sisters have macular degeneration. One sister has had a stroke. Daughter(s) Additional Family Medical History / Comment(s): Patient has 1 daughter and 2 sons. One son has vision illness. Medications and Allergies Home Medications Medication Instructions Recorded Confirmed Type Bisacodyl [Dulcolax] 10 mg RECTAL HS PRN 06/18/19 06/18/19 History Furosemide [Lasix] 20 mg PO DAILY@0806/18/19 06/18/19 History Furosemide [Lasix] 40 mg PO ONCE PRN 06/18/19 06/18/19 History Glucerna Shake 1 can PO BID-W/MEALS 06/18/19 06/18/19 History Loperamide [Imodium] 2 mg PO Q4H PRN 06/18/19 06/18/19 History Losartan Potassium 100 mg PO DAILY@79906/18/19 06/18/19 History Magnesium Hydroxide [Milk of 2,400 mg PO DAILY PRN 06/18/19 06/18/19 History Magnesia] Na Phos,M-B/Na Phos,Di-Ba [Fleet 133 ml RECTAL DAILY PRN 06/18/19 06/18/19 History Adult] Potassium Chloride ER [K-Dur 10] 10 meq PO DAILY@79906/18/19 06/18/19 History Tamsulosin [Flomax] 0.4 mg PO DAILY@79906/18/19 06/18/19 History Vit C/E/Zn/Coppr/Lutein/Zeaxan 1 cap PO DAILY@1700 06/18/19 06/18/19 History [Preservision Areds 2 Softgel] HYDROcodone/APAP 5-325MG [[place] 1 tab PO Q6H PRN #12 tab 06/21/19 Rx 5-325] Metoprolol Tartrate [Lopressor] 50 mg PO TID tab 06/21/19 Rx Vancomycin HCl 1,250 mg IV DAILY@1400 #0 06/21/19 06/18/19 Rx amLODIPine [Norvasc] 5 mg PO BID tab 06/21/19 Rx hydrALAZINE HCL [Apresoline] 75 mg PO TID tab 06/21/19 Rx Allergies Allergy/AdvReac Type Severity Reaction Status Date / Time No Known Allergies Allergy Unverified 06/18/19 12:05 Physical Examination - Vital Signs Vital Signs: Vital Signs Temp Pulse Pulse Resp BP BP Pulse Ox 06/21/19 04:24 98.2 F 86 18 168/78 94 L 06/21/19 03:15 66 183/91 06/21/19 03:05 66 191/93 06/21/19 03:00 68 18 193/83 95 06/21/19 02:40 70 188/96 06/21/19 02:38 86 18 184/96 94 L 06/21/19 02:35 70 18 188/96 95 06/20/19 23:50 97.8 F 70 17 152/81 94 L 06/20/19 21:19 62 18 06/20/19 20:16 97.9 F 62 18 135/74 94 L 06/20/19 15:35 97.4 F L 60 16 165/75 98 06/20/19 13:25 70 134/62 06/20/19 11:10 62 16 221/93 95 Intake and Output 06/20/19 06/21/19 06/21/19 22:59 06:59 14:59 Intake Total 120 Output Total 1400 475 Balance -1280 -475 Intake: Oral 120 Output: Urine 1400 475 Other: Voiding Method Indwelling Catheter Indwelling Catheter # Voids 1 Weight 70.5 kg Results - Laboratory Findings CBC and BMP: 06/21/19 03:12 06/21/19 03:12 Abnormal Lab Findings: Abnormal Labs 06/18/19 06/18/19 06/19/19 13:33 13:37 05:47 MCHC Chloride 108 H 110 H BUN 26 H 24 H Creatinine 1.33 H 1.21 H Glucose 112 H POC Glucose (mg/dL) Creatine Kinase <20 L Total Protein 6.0 L Albumin 3.2 L Urine Appearance Cloudy H Ur Leukocyte Esterase Large H Urine RBC 12 H Urine WBC 154 H Amorphous Sediment Occasional H Urine Bacteria Rare H Hyaline Casts 114 H Urine Mucus Occasional H Urine Yeast (Budding) Many H 06/21/19 06/21/19 06/21/19 02:32 03:12 03:12 MCHC 30.0 L Chloride BUN 20 H Creatinine 1.10 H Glucose 115 H POC Glucose (mg/dL) 105 H Creatine Kinase Total Protein Albumin Urine Appearance Ur Leukocyte Esterase Urine RBC Urine WBC Amorphous Sediment Urine Bacteria Hyaline Casts Urine Mucus Urine Yeast (Budding)
--- NOTE | 2019-06-21 13:01 | ECHOF ---
Referral Reason:LVF MEASUREMENTS -------- HEIGHT: 160.0 cm WEIGHT: 69.4 kg BP: 221/93 RVIDd: 3.4 cm (< 3.3) IVSd: 1.3 cm (0.6 - 1.1) LVIDd: 3.9 cm (3.9 - 5.3) LVPWd: 1.3 cm (0.6 - 1.1) IVSs: 1.8 cm LVIDs: 2.3 cm LVPWs: 1.4 cm LA Diam: 5.0 cm (2.7 - 3.8) LAESV Index (A-L): 39.67 ml/m MV EXCURSION: 18.395 mm (> 18.000) MV EF SLOPE: 85 mm/s (70 - 150) EPSS: 1.1 cm RAP: 15.00 mmHg RVSP: 85.08 mmHg FINDINGS -------- Atrial fibrillation. This was a technically adequate study. The left ventricular size is normal. There is mild concentric left ventricular hypertrophy. Overa ll left ventricular systolic function is normal with, an EF between 55 - 60 %. Left ventricular mervin limg pressure cannot be estimated due to Atrial fibrillation. The right ventricle is normal in size. The left atrium is markedly dilated. LA is severely dilated >40 ml/m2 The right atrial size is normal. There is mild aortic valve sclerosis. There is no evidence of aortic regurgitation. Mild mitral annular calcification present. Moderate mitral regurgitation is present. Severe tricuspid regurgitation present. There is severe pulmonary hypertension. The right ventric ular systolic pressure, as measured by Doppler, is 85.08mmHg. There is no pulmonic regurgitation present. The aortic root size is normal. There is no pericardial effusion. CONCLUSIONS -------- 1. Atrial fibrillation. 2. This was a technically adequate study. 3. The left ventricular size is normal. 4. There is mild concentric left ventricular hypertrophy. 5. Overall left ventricular systolic function is normal with, an EF between 55 - 60 %. 6. Left ventricular fillimg pressure cannot be estimated due to Atrial fibrillation. 7. The right ventricle is normal in size. 8. The left atrium is markedly dilated. 9. LA is severely dilated >40 ml/m2 10. The right atrial size is normal. 11. There is mild aortic valve sclerosis. 12. Mild mitral annular calcification present. 13. Moderate mitral regurgitation is present. 14. Severe tricuspid regurgitation present. 15. There is severe pulmonary hypertension. 16. The right ventricular systolic pressure, as measured by Doppler, is 85.08mmHg. 17. There is no pulmonic regurgitation present. 18. The aortic root size is normal. 19. There is no pericardial effusion. ADVERTISING PRODUCTION MANAGER: Julianna Christensen RDCS
--- NOTE | 2019-06-21 13:39 | US ---
EXAMINATION TYPE: US carotid duplex BILAT DATE OF EXAM: 06/21/2019 COMPARISON: NONE CLINICAL HISTORY: a.fib; concern for stroke. Hx stroke. Poor historian. Suboptimal visualization due to pulsatility of vessels EXAM MEASUREMENTS: RIGHT: Peak Systolic Velocity (PSV) cm/sec ----- Right CCA: 54.9 ----- Right ICA: 63.6 ----- Right ECA: 135.8 ICA/CCA ratio: 1.2 RIGHT: End Diastole cm/sec ----- Right CCA: 9.5 ----- Right ICA: 12.0 ----- Right ECA: 0.0 LEFT: Peak Systolic Velocity (PSV) cm/sec ----- Left CCA: 53.7 ----- Left ICA: 81.4 ----- Left ECA: 114.5 ICA/CCA ratio: 1.5 LEFT: End Diastole cm/sec ----- Left CCA: 8.7 ----- Left ICA: 15.4 ----- Left ECA: 0.0 VERTEBRALS (direction of flow): Right Vertebral: Antegrade Left Vertebral: Antegrade Rhythm: Arrhythmia IMPRESSION: Bilateral wall thickening. Right ECA elevated velocity. Plaque seen in bilateral CCA an d bulbs. No significant stenosis. Criteria for Assigning % of Stenosis / Diameter reduction (Estimation based on the indirect measurements of the internal carotid artery velocities (ICA PSV). 1. Normal (no stenosis)=ICA PSV < 125 cm/s: ratio < 2.0: ICA EDV<40 cm/s. 2. Less than 50% stenosis=ICA PSV < 125 cm/s: ratio < 2.0: ICA EDV<40 cm/s. 3. 50 to 69% stenosis=ICA PSV of 125 to 230 cm/s: ration 2.0 ? 4.0: ICA EDV 40-100 cm/s. 4. Greater than 70% stenosis to near occlusion= ICA PSV > 230 cm/s: ratio > 4.0: ICA EDV > 100 cm/s. 5. Near occlusion= ICA PSV velocities may be low or undetectable: variable ratio and ICA EDV. 6. Total occlusion=unable to detect flow.
[2019-06-21 14:14] VITALS: BP 158/80; PULSE 63; TEMP 97
--- NOTE | 2019-06-21 22:15 | PN ---
PROGRESS NOTE DATE OF SERVICE: 06/21/2019 REASON FOR FOLLOWUP: 1. Right elbow osteomyelitis. 2. Positive urine culture, likely colonization. 3. Positive blood culture, likely contamination. INTERVAL HISTORY: The patient was seen on rounds this morning. The patient has been afebrile. She was breathing comfortably. No chest pain or cough. No pain to the right elbow area and no diarrhea. PHYSICAL EXAMINATION: Blood pressure is 158/80 with a pulse of 63, temperature 97. She is 94% on room air. General description is an elderly female lying in bed in no distress. RESPIRATORY SYSTEM: Unlabored breathing. Clear to auscultation anteriorly. HEART: S1, S2. Regular rate and rhythm. ABDOMEN: Soft. No tenderness. Right elbow currently dressed up. No obvious drainage on the dressing. LABS: Hemoglobin 13.1, white count 4.3, BUN of 20, creatinine 1.10. Blood culture repeat has been negative. DIAGNOSTIC IMPRESSION AND PLAN: 1. Patient with right elbow osteomyelitis; clinically responded to vancomycin; to continue to finish a 6-week course of therapy. 2. Positive blood culture with coagulase-negative staphylococcus; possible contamination. Follow-up blood culture negative. 3. Positive urine culture change her current Peoples catheter and obtain urine culture from new Peoples catheter. This was discussed with the RN this morning. TEREZAL / JACIN: [id number] /
[2019-06-22] MEDS ORDERED: VANCOMYCIN 1,250 MG in SODIUM CHLORIDE 0.9% 250 ML IVPB SCH ×2
== END 2019-06-21 15:08 | DRG 315 ==
LOC: EC 11:56 → 3SCARD 15:06 → OBSVTOIN 06-19 11:34
PROVIDERS: ADMIT Internal Medicine; ATTEND Internal Medicine
DX: I95.9 Hypotension, unspecified (principal); M86.9 Osteomyelitis, unspecified; B37.49 Other urogenital candidiasis; R47.01 Aphasia; I48.20 Chronic atrial fibrillation, unspecified; E86.0 Dehydration; I11.0 Hypertensive heart disease with heart failure; I27.20 Pulmonary hypertension, unspecified; I50.9 Heart failure, unspecified; I08.1 Rheumatic disorders of both mitral and tricuspid valves; F03.90 Unspecified dementia, unspecified severity, without behavioral disturbance, psychotic disturbance, mood disturbance, and anxiety; M06.9 Rheumatoid arthritis, unspecified; R00.1 Bradycardia, unspecified; S06.9X0S Unspecified intracranial injury without loss of consciousness, sequela; H35.30 Unspecified macular degeneration; I25.10 Atherosclerotic heart disease of native coronary artery without angina pectoris; M24.542 Contracture, left hand; M24.541 Contracture, right hand; R29.6 Repeated falls; R26.9 Unspecified abnormalities of gait and mobility; R47.89 Other speech disturbances; R33.9 Retention of urine, unspecified; S51.001D Unspecified open wound of right elbow, subsequent encounter; R29.810 Facial weakness; Z79.899 Other long term (current) drug therapy; Z87.891 Personal history of nicotine dependence; Z87.01 Personal history of pneumonia (recurrent); Z82.3 Family history of stroke; Z82.49 Family history of ischemic heart disease and other diseases of the circulatory system; Z80.8 Family history of malignant neoplasm of other organs or systems
CPT/HCPCS: 36415; 70450; 71046; 80048; 80053; 80202; 81001; 82550; 83605; 83735; 83880; 84100; 84484; 85025; 85027; 85610; 85730; 87040; 87086; 93005; 93306; 93880; 96365; 99285